=== PATIENT | male | born 1965 | race Caucasian/White ===

== ENCOUNTER 2016-11-29 11:36 | Day surgery (SDC) | payer OTHER ==
[~2016-11-29] VITALS: Ht 172.7 cm; Wt 111.3 kg
[~2016-11-29 11:36] MED LIST: ALPRAZOLAM0.5 MG PO; HYDROCODON-ACE1 EAC7 PO
[2016-11-29 12:15] VITALS: BP 123/60
[2016-11-29 19:10] VITALS: BP 148/81
[2016-11-29 23:35] VITALS: BP 137/75
[2016-11-30 03:30] VITALS: BP 125/64
[2016-11-30 07:00] VITALS: BP 130/74
== END 2016-11-30 10:48 | disposition home or self-care (01) ==
LOC: SDC 11:36 → 2SOUTH 17:04 → 2EAST 17:04
PROC: 0RG10A0 Fusion of Cervical Vertebral Joint with Interbody Fusion Device, Anterior Approach, Anterior Column, Open Approach (ICD-10-PCS; principal; 2016-11-29)
DX: M50.11 Cervical disc disorder with radiculopathy, high cervical region (principal); M79.601 Pain in right arm; M25.78 Osteophyte, vertebrae; G47.30 Sleep apnea, unspecified; F17.200 Nicotine dependence, unspecified, uncomplicated; E66.9 Obesity, unspecified; Z68.37 Body mass index [BMI] 37.0-37.9, adult
CPT/HCPCS: 72040; 76000; 93005; 94640; 94640 76; C1713; G0378; J0330; J0690; J1170; J1885; J2405; J3010; J3480